=== PATIENT | female | born 1975 | race Caucasian/White ===

== ENCOUNTER → 2022-03-01 | Outpatient (CLI) | payer OTHER ==
[2022-03-02 19:08] LABS: HPV 16 Negative (Negative); HPV 18 Negative (Negative); HPV OTHER HR TYPES Negative (Negative)
== END | disposition home or self-care (01) ==
LOC: LAB SHORT 15:55
PROVIDERS: Obstetrics & Gynecology
DX: Z01.419 Encounter for gynecological examination (general) (routine) without abnormal findings (principal)
CPT/HCPCS: 87624; G0123

== ENCOUNTER → 2022-05-13 | Outpatient (CLI) | payer OTHER ==
[2022-05-13 14:55] LABS: Adenovirus F 40/41 Not Detected (NOT DETECT); Astrovirus Not Detected (NOT DETECT); Campylobacter Sp Not Detected (NOT DETECT); Cryptosporidium Not Detected (NOT DETECT); Cyclospora Cayetanensis Not Detected (NOT DETECT); E. Coli O157 Not Detected (NOT DETECT); Entamoeba Histolytica Not Detected (NOT DETECT); Enteroaggregative E. coli-EAEC Not Detected (NOT DETECT); Enteropathogenic E. coli-EPEC Not Detected (NOT DETECT); Enterotoxigenic E. coli-ETEC Not Detected (NOT DETECT); Giardia Lamblia Not Detected (NOT DETECT); Norovirus GI/GII Not Detected (NOT DETECT); Plesiomonas Shigelloides Not Detected (NOT DETECT); Rotavirus A Not Detected (NOT DETECT); Salmonella Sp Not Detected (NOT DETECT); Sapovirus Not Detected (NOT DETECT); Shiga Toxin-prod E. coli-STEC Not Detected (NOT DETECT); Shigella/Enteroin E. coli-EIEC Not Detected (NOT DETECT); Vibrio Cholerae Not Detected (NOT DETECT); Vibrio Sp Not Detected (NOT DETECT); Yersinia Enterocolitica Not Detected (NOT DETECT)
== END | disposition home or self-care (01) ==
LOC: LAB SHORT 11:58 → LAB 11:58
PROVIDERS: Surgery
DX: R19.7 Diarrhea, unspecified (principal)
CPT/HCPCS: 87507

== ENCOUNTER 2022-06-03 06:23 | Day surgery (SDC) | payer OTHER ==
[~2022-06-03] VITALS: Ht 167.6 cm; Wt 66.8 kg
[2022-06-03] MEDS ORDERED: ALBU90OI INH (06:41)
[2022-06-03] MEDS ORDERED: ACYCLOVIR15 GM TOP (06:42)
--- NOTE | 2022-06-03 07:52 | NUR ---
06/03/22 0752 Marci Diaz HISTORY, CHART, MEDICATIONS AND ALLERGIES REVIEWED BEFORE START OF PROCEDURE. PATIENT CONFIRMS NPO STATUS AND AGREES WITH SCHEDULED PROCEDURE. 3-LEAD EKG REVIEWED WITH PHYSICIAN PRIOR TO START OF PROCEDURE. MONITOR INTACT WITH CONTINUOUS PULSE OXIMETRY,CAPNOGRAPHY, 3-LEAD EKG, INTERMITTENT BP. SUPPLEMENTAL O2 TO BE TITRATED THROUGHOUT PROCEDURE TO MAINTAIN O2 SATURATION ABOVE 90%. PATIENT DETERMINED TO BE ASA APPROPRIATE FOR PROPOFOL SEDATION PRIOR TO START OF PROCEDURE BY DR. CORONEL. 2% LIDOCAINE, 3ML ATOMIZED TO BACK OF THROAT PRIOR TO EGD PER DR. CORONEL ORDERS.
--- NOTE | 2022-06-03 08:43 | NUR ---
Discharge instructions reviewed with patient. Patient verbalizes understanding. Copy given to patient to take home. Patient States Post-Procedure ride home has been arranged.
== END 2022-06-03 08:44 | disposition home or self-care (01) ==
LOC: ORSCMMR 06:23 → ORD 07:30 → ORSCMMR 08:44
DX: R19.7 Diarrhea, unspecified (principal); Z86.010 Personal history of colon polyps; R11.2 Nausea with vomiting, unspecified; K29.70 Gastritis, unspecified, without bleeding; B96.81 Helicobacter pylori [H. pylori] as the cause of diseases classified elsewhere; D12.3 Benign neoplasm of transverse colon; K62.1 Rectal polyp; K57.30 Diverticulosis of large intestine without perforation or abscess without bleeding; G40.909 Epilepsy, unspecified, not intractable, without status epilepticus; Z79.899 Other long term (current) drug therapy; F17.210 Nicotine dependence, cigarettes, uncomplicated
CPT/HCPCS: 88305; 88341; 88342; J2250; J2704; J7120

== ENCOUNTER 2024-05-03 17:09 | Emergency (ER) | payer BC ==
[~2024-05-03] VITALS: Ht 167.6 cm; Wt 77.1 kg
[~2024-05-03 17:09] MED LIST: ACYCLOVIR15 GM TOP; ALBU90OI INH
[2024-05-03] MEDS ORDERED: OxyCODONE 5 mg/Acetamin 325 mg TABLET PO ONE (22:40)
[2024-05-03] MEDS ORDERED: Lidocaine 4% 1 Patch TOP ONE (22:40)
[2024-05-03] MEDS ORDERED: Ketorolac Tromethamine 30mg Vial IM ONE (22:40)
[2024-05-03] MEDS ORDERED: CYCL10 PO (22:41)
[2024-05-03 22:57] VITALS: BP 136/82
== END 2024-05-03 22:55 | disposition home or self-care (01) ==
LOC: ER 17:09
DX: S20.212A Contusion of left front wall of thorax, initial encounter (principal); W22.8XXA Striking against or struck by other objects, initial encounter; F17.200 Nicotine dependence, unspecified, uncomplicated
CPT/HCPCS: 71046; 99283-25

== ENCOUNTER → 2024-12-25 | Outpatient (CLI) | payer BC ==
[~2024-12-25] MED LIST changes: +ASHWAGANDHA PO; +CYCL10 PO; +DICY20 PO; +OMEP20ER PO; +VALA500 PO; +[UNRECOGNIZED DRUG - OTHER] PO
== END ==
LOC: LAB 11:45 → LAB SHORT 11:45
DX: A04.8 Other specified bacterial intestinal infections (principal)
CPT/HCPCS: 87338

== ENCOUNTER 2024-12-31 08:11 | Day surgery (SDC) | payer BC ==
[~2024-12-31] VITALS: Ht 167.6 cm; Wt 75.5 kg
[~2024-12-31 08:11] MED LIST changes: +Lactated Ringer's 1,000 ML IV ONE; +propofoL 50 ML IV ONE
[2024-12-31] MEDS ORDERED: Lactated Ringer's 1,000 ML IV ONE (08:55)
--- NOTE | 2024-12-31 09:07 | NUR ---
12/31/24 0907 Brit Ray PT. DENIES ANY PAIN.
[2024-12-31 11:14] VITALS: BP 122/74
== END 2024-12-31 11:18 | disposition home or self-care (01) ==
LOC: ORSCSDS 08:11
PROVIDERS: Surgery
PROC: 0DBP8ZX Excision of Rectum, Via Natural or Artificial Opening Endoscopic, Diagnostic (ICD-10-PCS; principal; 2024-12-31 09:15)
PROC: 0DBK8ZX Excision of Ascending Colon, Via Natural or Artificial Opening Endoscopic, Diagnostic (ICD-10-PCS; principal; 2024-12-31 09:15)
PROC: 0DBL8ZX Excision of Transverse Colon, Via Natural or Artificial Opening Endoscopic, Diagnostic (ICD-10-PCS; principal; 2024-12-31 09:15)
PROC: 0DBN8ZX Excision of Sigmoid Colon, Via Natural or Artificial Opening Endoscopic, Diagnostic (ICD-10-PCS; principal; 2024-12-31 09:15)
PROC: 0DB78ZX Excision of Stomach, Pylorus, Via Natural or Artificial Opening Endoscopic, Diagnostic (ICD-10-PCS; principal; 2024-12-31 09:15)
DX: K92.0 Hematemesis (principal); R10.11 Right upper quadrant pain; R19.4 Change in bowel habit; Z86.0101 Personal history of adenomatous and serrated colon polyps; K29.70 Gastritis, unspecified, without bleeding; K63.5 Polyp of colon; K62.1 Rectal polyp; G40.909 Epilepsy, unspecified, not intractable, without status epilepticus; Z79.899 Other long term (current) drug therapy; F17.210 Nicotine dependence, cigarettes, uncomplicated
CPT/HCPCS: 88305; 88342; J2704; J7120

== ENCOUNTER 2025-01-20 18:35 | Observation (INO) | payer BC ==
[~2025-01-20] VITALS: Ht 167.6 cm; Wt 76.4 kg
[~2025-01-20 18:35] MED LIST changes: -Percocet 5-3251 EACH PO
[2025-01-20] MEDS ORDERED: Ketorolac Tromethamine 15mg Vial IV ONE (19:35)
[2025-01-20] MEDS ORDERED: Ondansetron HCl 2 MG / ML 2ML Vial IV ONE (19:35)
[2025-01-20] MEDS ORDERED: NS 1,000 ML IV SCH (19:35)
[2025-01-20] MEDS ORDERED: Piperacillin/Tazobactam Sod 3.375 GM in NS 100 ML IV ONE (19:45)
[2025-01-20] MEDS ORDERED: Lactated Ringer's 1,000 ML IV SCH (20:25)
[2025-01-20] MEDS ORDERED: HYDROcodone 5-APAP 325 TAB PO PRN (20:30)
[2025-01-20] MEDS ORDERED: Ondansetron HCl 2 MG / ML 2ML Vial IV PRN (20:30)
[2025-01-20] MEDS ORDERED: FentaNYL Citrate 50 MCG/ML 2 ML Injection IV PRN (20:30)
[2025-01-20] MEDS ORDERED: Ondansetron 4 MG TAB PO PRN (20:30)
--- NOTE | 2025-01-20 22:05 | NUR ---
ARRIVAL TO UNIT PT ARRIVED TO UNIT VIA [facility]. PT IND AMB TO BED. A&O x4. REQUESTS WATER. ENDORSES RLQ PAIN. DENIES N/V. NO FURTHER NEEDS STATED. ORIENTED TO UNIT, CALL LIGHT IN REACH.
[2025-01-20 22:15] VITALS: BP 128/70
[2025-01-21] VITALS (13 sets, daily range): BP systolic 96–157; BP diastolic 51–93
[2025-01-21] MEDS ORDERED: Piperacillin/Tazobactam Sod 3.375 GM in NS 100 ML IV SCH (01:00)
--- NOTE | 2025-01-21 04:49 | NUR ---
SHIFT SUMMARY S/P RLQ PAIN. NO ACUTE CHANGES OVERNIGHT. VSS. PT REPORTS PAIN TOLERABLE. MEDICATED PER EMAR. IV FLUIDS/ABX INFUSING PER EMAR. NPO IN ANTICIPATION OF SURG LATER TODAY. VOIDING. IND IN ROOM. CALL LIGHT IN REACH, WILL REPORT TO DAY RN.
[2025-01-21] MEDS ORDERED: Bupivacaine 0.5% HCl 5 MG/ML 30MLVIAL ONE (12:45)
[2025-01-21] MEDS ORDERED: FentaNYL Citrate 50 MCG/ML 2 ML Injection IV PRN ×3 (13:05→14:55)
[2025-01-21] MEDS ORDERED: Ondansetron HCl 2 MG / ML 2ML Vial IV PRN ×2 (13:05→15:00)
[2025-01-21] MEDS ORDERED: HYDROmorphone HCl/Pf 1MG SYR IV PRN ×3 (13:05→14:55)
[2025-01-21] MEDS ORDERED: Prochlorperazine Edisylate 10 mg Vial IV PRN ×2 (13:05→17:05)
[2025-01-21] MEDS ORDERED: Lactated Ringer's 1,000 ML IV SCH (13:15)
[2025-01-21] MEDS ORDERED: Rocuronium Bromide 10 MG/ML 5ML Injection IV ONE ×2 (13:58→14:54)
[2025-01-21] MEDS ORDERED: Lidocaine HCl 2% 20 ML MDV ONE ×2 (13:58→14:54)
[2025-01-21] MEDS ORDERED: propofoL 20 ML IV ONE ×2 (13:58→14:54)
[2025-01-21] MEDS ORDERED: Phenylephrine HCl 100 MCG/ML-NS 10MLSYR (1MG/10ML) ONE (14:09)
--- NOTE | 2025-01-21 14:10 | NUR ---
PT TO OR FROM ROOM 226 VIA WC
[2025-01-21] MEDS ORDERED: Dexamethasone Sod Phos 10 MG/ML 1ML VIAL ONE (14:54)
[2025-01-21] MEDS ORDERED: FentaNYL Citrate 50 MCG/ML 2 ML Injection ONE (14:54)
[2025-01-21] MEDS ORDERED: HydrALAZINE HCl 20 MG / ML 1ML Vial IV PRN (14:55)
[2025-01-21] MEDS ORDERED: Albuterol 2.5 MG/3 ML VIAL INH PRN (14:55)
[2025-01-21] MEDS ORDERED: Labetalol HCL 5 MG/ML 4ML Injection (Single Dose) IV PRN (15:00)
[2025-01-21] MEDS ORDERED: Sugammadex Sodium 200 MG/2ML SDV (100 MG/ML) ONE (15:03)
[2025-01-21] MEDS ORDERED: Ondansetron HCl 2 MG / ML 2ML Vial ONE (15:04)
[2025-01-21] MEDS ORDERED: HYDROmorphone HCl/Pf 1MG SYR ONE ×2 (15:19→15:46)
[2025-01-21] MEDS ORDERED: Ketorolac Tromethamine 30mg Vial ONE (15:29)
--- NOTE | 2025-01-21 18:37 | NUR ---
SHIFT SUMMARY PT IS POD0 FOR LAP APPY. PT IS A/OX4, SBA IN ROOM. VOIDING, TOLERATING SNACKS AND FLUIDS. PAS ON. DRESSINGS C/D/I. IV FLUIDS GIVEN PER EMAR. POSSIBLE D/C TOMORROW. PT RESTING W/ CALL LIGHT IN REACH.
[2025-01-22 04:07] VITALS: BP 105/52
--- NOTE | 2025-01-22 05:51 | NUR ---
SHIFT SUMMARY. PATIENT MEDICATED SCHEDULED AND NEEDED PRN. PATIENT WANTING TO GO HOME TOMORROW PLANNED. 3 LAP INC COVERED WITH GAUZE AND TEGADERM C/D/I. SL X2 BOTH FLUSHED. VOIDING. DENIES N/V. UP INDEPENDENT IN ROOM. WILL GIVE REPORT TO ONCOMING RN TAKING PT.
[2025-01-22 07:28] VITALS: BP 135/61
[2025-01-22] MEDS ORDERED: Percocet 5-3251 EACH PO (08:25)
--- NOTE | 2025-01-22 10:11 | NUR ---
DISCHARGE: PT A/O, VSS. SURGICAL SITES WNL. PT IS EATING, WALKING AND VOIDING. DR. GALAN IN ROOM AT ABOUT 0745 AND WENT OVER DC INSTRUCTIONS. DC PACKET PRINTED AND PT EDUCATED. IV DC'D WNL, TIP INTACT. PT GIVEN SCRIPT FOR [facility]. PT DENIED NEED FOR WHEELCHAIR AND LEFT UNIT AT ABOUT 0930
== END 2025-01-22 09:28 | disposition home or self-care (01) ==
LOC: ER 18:35 → SURS 18:36
PROVIDERS: Surgery; ADMIT Surgery
PROC: 0DTJ0ZZ Resection of Appendix, Open Approach (ICD-10-PCS; principal; 2025-01-21 13:00)
DX: K35.80 Unspecified acute appendicitis (principal); F17.210 Nicotine dependence, cigarettes, uncomplicated; Z86.0100 Personal history of colon polyps, unspecified
CPT/HCPCS: 88304; 96361; 96365-59; 96366; 96375; 96376; 99285-25; A9270; G0378; J0780; J1100; J1171; J1885; J2371; J2405; J2543; J2704; J3010; J7030; J7120

== ENCOUNTER → 2025-01-20 | Outpatient (CLI) | payer BC ==
[~2025-01-20] MED LIST changes: -Lactated Ringer's 1,000 ML IV ONE; +Percocet 5-3251 EACH PO; -propofoL 50 ML IV ONE
[2025-01-20 17:18] LABS: BASOPHILS ABSOLUTE AUTO 0.01 K/mm3 (0.00-0.23); BASOPHILS PERCENT AUTO 0 % (0-2); EOSINOPHILS ABSOLUTE AUTO 0.23 K/mm3 (0.00-0.68); EOSINOPHILS PERCENT AUTO 2 % (0-6); Hematocrit 39.6 % (33.0-51.0); Hemoglobin 13.8 g/dL (11.5-16.0); IMMATURE GRAN ABSOLUTE AUTO 0.03 K/mm3 (0.00-0.10); IMMATURE GRAN PERCENT AUTO 0 % (0-1); LYMPHOCYTES ABSOLUTE AUTO 3.76 K/mm3 (0.84-5.20); LYMPHOCYTES PERCENT AUTO 37 % (21-46); MONOCYTES PERCENT AUTO 8 % (4-13); Mean Corpuscular HGB 32.7 pg (26.0-34.0); Mean Corpuscular HGB Conc 34.8 g/dL (31.5-36.5); Mean Corpuscular Volume 94 fL (80-100); Mean Platelet Volume 9.3 fL (9.1-12.4); NEUTROPHILS ABSOLUTE AUTO 5.47 K/mm3 (1.96-9.15); NEUTROPHILS PERCENT AUTO 53 % (41-73); Platelet Count 403 K/mm3 (150-400); RDW Coefficient Variation 12.4 % (11.7-14.2); RDW Standard Deviation 42.5 fL (35.1-46.3); Red Blood Cell Count 4.22 M/mm3 (3.80-5.20)
== END ==
LOC: LAB 17:13 → LAB SHORT 17:13
PROVIDERS: Physician Assistant
DX: R10.31 Right lower quadrant pain (principal)
CPT/HCPCS: 85025